=== PATIENT | female | born 1970 | race Caucasian/White ===

== ENCOUNTER 2020-04-24 09:42 | Outpatient (REF) | payer OTHER, SELFPAY | END 2020-04-24 09:43 | disposition home or self-care (01) | LOC: HO.LAB 09:42 | PROVIDERS: Visit Provider Advanced Practice Midwife | DX: N90.89 Other specified noninflammatory disorders of vulva and perineum (principal); N93.9 Abnormal uterine and vaginal bleeding, unspecified | CPT/HCPCS: 87255 ==

== ENCOUNTER → 2020-07-08 14:17 | Outpatient (BNVA) | payer OTHER, SELFPAY | PROVIDERS: Visit Provider Obstetrics & Gynecology ==